=== PATIENT | male | born 1950 | race Caucasian/White ===

== ENCOUNTER → 2017-06-19 | Outpatient (CLI) | payer MEDICARE, OTHER ==
[~2017-06-19] MED LIST: ALEVE220 M1 PO; BAYER CHEWABLE81 MG PO; CEFDINIR300 MG PO; CIPROFLOXACIN500 M1 PO; COZAAR 50 MG TA50 M1 PO; FLOMAX0.4 MG PO; IBUPROFEN 600600 M1 PO; MIRALAX17 G1 PO; NIACIN500 MG PO; ZOCOR20 MG PO
--- NOTE | 2017-06-20 14:44 | PAINCON ---
[address] [address] PAIN MANAGEMENT CONSULTATION Name: ONUR JAMES Room: [facility] DERIC KramerMagda#: [id number] Admission: 06/19/17 Attend Phys: Zeferino Rajan MD Discharge: Date of : 46 Report #: [id number] THIS REPORT FOR: //name// CC: Ashley Ellis DATE OF SERVICE: 06/19/2017 FOLLOWUP COMPLAINT: "I was carrying a tub and when I moved to take it through a doorway, I noticed pain in my back." FOLLOWUP HISTORY: The patient is a 67-year-old gentleman who has been seen in the Pain Clinic in the past by Dr. Jef Barroso. This is my first visit with the patient. As you may recall, he is a 67-year-old gentleman who has been followed in the Pain Clinic because of lumbar radicular pain. He has undergone epidural steroid injections in the past and gleaned benefits from these. States that he was moving a bathtub. While he was taking it through a doorway, he noticed some worsening of pain and discomfort, which radiates down his right leg with some numbness and tingling. He was given a Medrol Dosepak, which helped. Pain still continues to be problematic. He rates it as a 4/10. He has undergone epidural steroid injections in the past by Dharmesh. After that, he noticed significant improvement in his pain. He denies any bowel or bladder dysfunction at this juncture. He feels that another epidural steroid injection might be helpful. He has been taking Aleve 220 mg p.o. b.i.d. Still has pain with walking, lifting, and bending. Notes that the pain does improve somewhat with rest and has with use of heat. He would like to proceed with another epidural steroid injection at this juncture. ALLERGIES: No known drug allergies. MEDICATIONS: Aspirin 81 mg, Cozaar 50 mg tablets daily, Naprosyn 220 mg b.i.d., niacin 500 mg, MiraLax 17 grams constipation, Zocor 20 mg, Flomax 0.4 mg q.24h. prostate and urine flow. PAST MEDICAL HISTORY: Hypertension, degenerative joint disease, osteoarthritis, dyslipidemia, chronic axial back pain. PAST SURGICAL HISTORY: Left sinus surgery 5 years ago. SOCIAL HISTORY: He is retired. He works for himself doing certain activities. He was employed as a apartment maintenance manager. Denies use of tobacco. Drinks about 2 alcoholic beverages per week. PAIN CLINIC ASSESSMENT: 1. Rheumatoid arthritic changes in [place] [address] PAIN MANAGEMENT CONSULTATION Name: AYAZ JAMESDonna Ruiz Room: [facility]#: [id number] Admission: 06/19/17 Attend Phys: Zeferino Rajan MD Discharge: Date of : 46 Report #: [id number] 2. Height 5 foot 10, weight 199 pounds, BMI is 28. 3. VITAL SIGNS: Blood pressure 141/79, heart rate is 74, respiratory rate 16, room air saturation is 96%, temperature 97.8. 4. Pain intensity 2-3/10. Has ache in the lower portion of his back with pain radiating down his right leg with numbness and tingling. 5. Fall risk. The patient has not fallen in the last 3 months. 6. The patient is not on a blood thinner. 7. History of hypertension. The patient is being treated for hypertension. 8. Opioid therapy greater than 6 weeks. The patient is not on opioid therapy. 9. Risk assessment tool: Pain score 16/70 in regards to general activity, mood, walking ability, work, relationship with other people, sleep, enjoyment of life. 10. Functional assessment tool. 11. Recreational drug use: The patient denies use of recreational drugs. 12. Tobacco: The patient has not smoked in 30 years. 13. Alcohol frequency about 1-2 alcoholic beverages per week. RADIOLOGIC DATA: Old MRI dated 06/26/2013 reveals: 1. L2-L3, there is minimal disk bulge. Ligamentum flavum measures 3 mm. No central spinal stenosis or focal disk protrusion is seen. Minor facet joint degenerative changes noted bilaterally with no significant foraminal narrowing. 2. L3-L4, there is minimal disk bulging. The ligamentum flavum measured 4.5 mm thickness. No central spinal stenosis or focal disk protrusion is seen. There is minimal facet joint degeneration changes bilaterally with no significant foraminal narrowing. 3. L4-L5, there is diffuse disk bulging. Ligamentum flavum measures 4.5 mm thickness. The AP diameter of the sac measures lower limits of normal at 11 mm. There is moderate facet joint degenerative change bilaterally. There is fluid in the facet joints bilaterally, greater on the right. Reactive marrow changes are noted in the area of the facet joints as discussed. 4. L5-S1, there is mild disk bulging. No central spinal stenosis or focal disk protrusion seen. The facet joint degenerative changes and reactive marrow changes are noted. PHYSICAL EXAMINATION: GENERAL: The patient is a well-developed white male. APPEARANCE: Appears his stated age. ORIENTATION: The patient is alert and oriented x 3. AFFECT: The patient's affect appears appropriate. HEENT: Normocephalic and atraumatic. Extraocular eye muscles intact. Hearing judged been within normal limits. No complaints of sinus problems. Moist buccal membranes. NECK: Without adenopathy or JVD. LUNGS: Clear to auscultation. HEART: Regular rate. ABDOMEN: Nontender. MUSCULOSKELETAL: Appears to have normal [place] [address] PAIN MANAGEMENT CONSULTATION Name: AYAZ JAMESDonna Ruiz Room: [facility] Williams#: [id number] Admission: 06/19/17 Attend Phys: Zeferino Rajan MD Discharge: Date of : 46 Report #: [id number] scoliosis, kyphosis or lordosis. Walks without an antalgic gait, but does complain of some pain in the right lateral thigh with activity. The patient notes some low back pain and discomfort on the right. Palpation in the paraspinous muscle area reproduces some numbness. The patient does perceive some numbness in the lateral portion of his thigh. Notes some numbness and tingling down into the low back area. Feels that most of discomfort at this juncture is in the L5-S1 distribution. Muscle bulk is judged to be 5/5 for the major muscle groups of the lower extremity, muscle strength is 5/5. IMPRESSION: 1. Lumbar radiculopathy, L5-S1 distribution, which has improved in the past with epidural steroid injections. 2. Degenerative joint disease. 3. Osteoarthritis. 4. Dyslipidemia. 5. Chronic axial back pain. PLAN: The patient states that he has had pain and discomfort in his low back since lifting a tub. Once he tried to turn to the side and carried through a doorway, he noted some worsening of his pain. He is experiencing pain, which radiates down the posterior portion of his leg in the L5-S1 distribution with numbness, weakness, and tenderness. He has undergone epidural steroid injections in the past. He noted that the pain improved after that treatment. He would like to proceed with an epidural steroid injection at this juncture. 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 He feels that another epidural steroid injection could be beneficial. Denies any bowel or bladder dysfunction that is new. Clinical findings support lumbar radiculopathy in the L5-S1 distribution. RECOMMENDATIONS: We will proceed with another epidural steroid injection. Risks and benefits of the procedure were again reviewed with the patient. They include, but are not limited to infection, increased muscle soreness headache, bleeding, worsening of pain, no improvement in pain, nerve trauma and post-dural puncture headache. The patient elects to proceed. PROCEDURE NOTE: The patient was taken to the exam room. He was helped on the fluoroscopy table. After appropriate positioning, his back was sterilely prepped with a Betadine solution. Fluoroscopy was used in an anterior, posterior as well as lateral fashion to identify the appropriate trigger/target area. This area had been infiltrated with 0.25% bupivacaine. A 17-gauge Tuohy with loss of resistance technique was used to gain access to the epidural space. There was no CSF, heme, or paresthesia. Total of 80 mg Depo-Medrol, 40 mg triamcinolone and 2 mL of 0.25% bupivacaine was injected. The patient tolerated the procedure well. He will follow up in the future as needed. [address] [address] PAIN MANAGEMENT CONSULTATION Name: ONUR JAMES Room: [facility] Ye#: [id number] Admission: 06/19/17 Attend Phys: Zeferino Rajan MD Discharge: Date of : 46 Report #: [id number] We would like to thank you for letting us participate in his care. We hope he continues to improve. <ELECTRONICALLY SIGNED> By: Zeferino Rajan MD 06/20/17 [id number]. John Rajan MD /nt
== END | disposition home or self-care (01) ==
LOC: M.PC 02:49
DX: M54.16 Radiculopathy, lumbar region (principal); M19.90 Unspecified osteoarthritis, unspecified site; E78.5 Hyperlipidemia, unspecified; G89.29 Other chronic pain; I10 Essential (primary) hypertension; F11.20 Opioid dependence, uncomplicated; Z79.899 Other long term (current) drug therapy

== ENCOUNTER 2018-04-01 14:47 | Emergency (ER) | payer MEDICARE, OTHER ==
[~2018-04-01] VITALS: Ht 177.8 cm; Wt 89.8 kg
[2018-04-01 15:09] LABS: URINE BILIRUBIN NEGATIVE (Negative); URINE BLOOD NEGATIVE (Negative); URINE CLARITY CLEAR; URINE COLOR YELLOW; URINE GLUCOSE-RANDOM NEGATIVE (Negative); URINE KETONES NEGATIVE (Negative); URINE LEUKOCYTES-REFLEX NEGATIVE (Negative); URINE NITRITE-REFLEX NEGATIVE (Negative); URINE PROTEIN TRACE (Negative); URINE UROBILINOGEN 0.2 E.U./dl (0.2-1.0)
[2018-04-01 15:41] LABS: ABSOLUTE BASOPHILS 0.1 thou/uL (0.0-0.2); ABSOLUTE EOSINOPHILS 0.5 thou/uL (0.0-0.7); ABSOLUTE LYMPHOCYTES 1.5 thou/uL (0.8-5.3); ABSOLUTE MONOCYTES 1.5 thou/uL (0.0-1.2); ABSOLUTE NEUTROPHILS 9.3 thou/uL (1.6-8.1); BASOPHILS 0.5 %; EOSINOPHILS 3.6 %; HEMATOCRIT 44.2 % (42.0-52.0); HEMOGLOBIN 15.1 gm/dL (14.0-18.0); LYMPHOCYTES 11.8 %; MCH 31.8 pg (26.0-34.0); MCHC 34.2 g/dL (28.0-37.0); MCV 93.1 fL (80.0-100.0); MONOCYTES 11.8 %; MPV 8.3 fl. (7.2-11.1); NUCLEATED RBCS 0 /100WBC; PLATELET COUNT* 223 thou/uL (150-400); POLYS 72.3 %; RBC 4.75 mil/uL (4.50-6.00); RDW-CV 13.3 % (10.5-14.5); WBC 12.9 thou/uL (4.0-11.0)
[2018-04-01 15:49] LABS: ALBUMIN 3.7 g/dL (3.4-5.0); CALCIUM 8.6 mg/dL (8.5-10.1); CREATININE 0.9 mg/dL (0.6-1.3); POTASSIUM 3.9 mmol/L (3.5-5.1); TOTAL BILIRUBIN 0.9 mg/dL (<0.1-1.0); TOTAL PROTEIN 7.2 g/dL (6.4-8.2)
[2018-04-01] MEDS ORDERED: PYRIDIUM100 M1 PO (17:42)
[2018-04-01] MEDS ORDERED: CIPRO500 MG PO (17:42)
[2018-04-01 17:50] VITALS: BP 133/70
== END 2018-04-01 17:51 | disposition home or self-care (01) ==
LOC: M.ERS 14:47
PROVIDERS: Nurse Practitioner Family
DX: D72.829 Elevated white blood cell count, unspecified (principal); R30.0 Dysuria; R35.0 Frequency of micturition; I10 Essential (primary) hypertension; E78.00 Pure hypercholesterolemia, unspecified; Z87.440 Personal history of urinary (tract) infections